=== PATIENT | male | born 1975 | race Caucasian/White ===

== ENCOUNTER 2018-04-07 09:38 | Emergency (ER) | payer SELFPAY ==
[~2018-04-07] VITALS: Ht 177.8 cm; Wt 100.0 kg
[~2018-04-07 09:38] MED LIST: PHEN100C4 PO
[2018-04-07] MEDS ORDERED: SODIUM CHLORIDE 0.9% 1,000 ML IV ONE (10:16)
[2018-04-07 16:00] VITALS: BP 132/71
== END 2018-04-07 16:01 | disposition home or self-care (01) ==
LOC: ER 09:47
DX: T40.0X1A Poisoning by opium, accidental (unintentional), initial encounter (principal); R41.82 Altered mental status, unspecified; F11.10 Opioid abuse, uncomplicated; Y93.89 Activity, other specified; Y92.096 Garden or yard of other non-institutional residence as the place of occurrence of the external cause
CPT/HCPCS: 71045; 93005; 99284; J7030

== ENCOUNTER 2018-11-13 03:32 | Emergency (ER) | payer OTHER, MEDICAID ==
[~2018-11-13] VITALS: Ht 180.3 cm; Wt 91.0 kg
[2018-11-13] MEDS ORDERED: NITROGLYCERIN 0.4MG TABLET SL SL PRN (04:30)
[2018-11-13] MEDS ORDERED: ASPIRIN 81MG TABLET PO ONE (04:30)
[2018-11-13 04:44] LABS: BASOPHILS % 0.3 % (0.0-2.0); EOSINOPHILS % 0.1 % (0.0-5.0); HEMATOCRIT. 39.7 % (42.0-52.0); HEMOGLOBIN. 13.1 g/dL (14.0-18.0); LYMPHOCYTES % 20.1 % (20.0-50.0); MEAN CORPUSCULAR HEMOGLOBIN 25.1 pg (28.0-32.0); MEAN PLATELET VOLUME 7.7 fl (7.4-10.4); MONOCYTES % 4.6 % (2.0-8.0); NEUTROPHILS % 74.9 % (40.0-76.0); PLATELET 293 x1000/uL (130-400); RED BLOOD CELL COUNT 5.23 mill/uL (4.7-6.1); RED CELL DISTRIBUTION WIDTH 15.6 % (11.6-14.6)
[2018-11-13 04:47] LABS: CHLORIDE 106 mEq/L (98-107)
[2018-11-13 04:51] LABS: ETHANOL BLOOD < 10 mg/dL
[2018-11-13 05:47] VITALS: BP 150/90
== END 2018-11-13 05:49 | disposition home or self-care (01) ==
LOC: ER 03:32
DX: R07.89 Other chest pain (principal); I10 Essential (primary) hypertension; F17.200 Nicotine dependence, unspecified, uncomplicated; F11.10 Opioid abuse, uncomplicated; Z98.890 Other specified postprocedural states
CPT/HCPCS: 36415; 71045; 80320; 83880; 84484; 93005; 99284; 99406; G0480

== ENCOUNTER 2022-07-17 17:13 | Emergency (ER) | payer MEDICAID, OTHER ==
[~2022-07-17] VITALS: Ht 172.7 cm; Wt 118.0 kg
[2022-07-17 17:18] VITALS: BP 173/111
== END 2022-07-17 17:37 | disposition left against medical advice (07) ==
LOC: ER 17:13
DX: Z53.21 Procedure and treatment not carried out due to patient leaving prior to being seen by health care provider (principal)